=== PATIENT | male | born 1990 | race Caucasian/White ===

== ENCOUNTER 2018-05-21 06:54 | Emergency (ER) | payer OTHER, SELFPAY ==
[2018-05-21 07:01] VITALS: BP 134/88; PULSE 83; RESP 16; TEMP 36.8; O2SAT 99; BMI 34.3
--- NOTE | 2018-05-21 07:24 | ED.EAR ---
HPI - Ear Problem General Chief complaint: Ear Stated complaint: RIGHT EAR DRUM 'EXPLODING' Time Seen by Provider: 05/21/18 07:11 Source: patient and family Mode of arrival: ambulatory Limitations: no limitations History of Present Illness HPI Narrative: 27-year-old nonsmoking male presents with a chief complaint of severe right ear pain for the past few hours. He has had upper respiratory complaints for the past few days including runny nose and mild cough. He has had no fever or drainage. He denies any recent flights or scuba diving. He denies nausea, vomiting or diarrhea. He denies any extensive history of ear trouble MD Complaint: ear pain Location: right ear Duration: constant Severity: moderate Relieving factors: nothing Exacerbating factors: nothing Context: recent illness Discharge from ear: no Treatment prior to arrival: none Related Data Previous Rx's Medication Instructions Recorded amoxicillin 500 mg PO TID 7 Days #21 cap 05/21/18 Allergies Allergy/AdvReac Type Severity Reaction Status Date / Time No Known Drug Allergies Allergy Verified 05/21/18 07:04 Review of Systems Review of Systems All systems reviewed & are unremarkable except as noted in HPI and below Constitutional Denies chills, Denies fever(s), Denies lethargy and Denies weakness Eyes Denies change in vision, Denies eye discharge, Denies irritation and Denies loss of vision ENT Ears, Nose, Mouth, and Throat: Denies change in voice, Reports otalgia, Reports nasal congestion, Reports nasal discharge, Denies neck pain and Reports sore throat Cardiovascular Denies chest pain, Denies irregular heart rhythm, Denies lightheadedness, Denies palpitations, Denies dyspnea, Denies dyspnea on exertion and Denies orthopnea Respiratory Denies cough, Denies dyspnea, Denies dyspnea on exertion and Denies wheezing Gastrointestinal Gastrointestinal: Denies abdominal pain, Denies change in bowel habits, Denies diarrhea, Denies nausea and Denies vomiting Genitourinary Denies hematuria, Denies flank pain, Denies urinary incontinence and Denies urinary urgency Musculoskeletal Denies neck pain Integumentary/Breasts Denies pruritus, Denies erythema, Denies rash and Denies wounds Neurologic Denies confusion, Denies loss of vision and Denies weakness Psychiatric Denies anxiety, Denies confusion, Denies depression, Denies homicidal ideation and Denies suicidal ideation Endocrine Denies palpitations Hematologic/Lymphatic Denies easy bruising Allergic/Immunologic Denies wheezing Exam Narrative Exam Narrative: GEN: AOx3 and in mild distress EYES: Pupils are equal, round, and reactive to light and accommodation. Extraoccular muscles are intact bilaterally. There is no subconjunctival hemorrhage or exudate. ENT: left TM is normal, phillips with normal cone of light. Right tympanic membrane is opacified, retracted and quite erythematous. Clear postpharyngeal drainage, no erythema or tonsillar swelling nor exudate. CHEST: Lungs are clear to auscultation bilaterally and free of wheezes, rales, or rhonchi. Heart rate is regular rhythm, there are no murmurs, clicks, rubs, or gallops. There is no chest wall tenderness. ABD: Abdomen is soft and nontender. There is no guarding or rebound. Bowel sounds are normal in all 4 quadrants. There is no mass or organomegaly. EXT: Full painless ROM of all extremities with no loss of sensation or strength. SKIN: Warm, pink, and dry. No erythema or rash Initial Vital Signs Initial Vital Signs: Vital Signs Temperature 98.2 F 05/21/18 07:01 Pulse Rate 83 05/21/18 07:01 Respiratory Rate 16 05/21/18 07:01 Blood Pressure 134/88 05/21/18 07:01 Pulse Oximetry 99 05/21/18 07:01 Course Vital Signs - 8 hr 05/21/18 07:01 Temperature 98.2 F Pulse Rate 83 Respiratory Rate 16 Blood Pressure 134/88 Pulse Oximetry 99 Discharge Plan Departure Patient Disposition: Home Clinical Impression: Otitis media Discharge Date/Time: 05/21/18 07:54 Interventions: ED Discharge Assessment Last Done: 05/21/18 07:54 Instructions: Middle Ear Infection Activity Restrictions/Additional Instructions: *You have been diagnosed with [ Otitis media ] *What to do: *Take medications as directed, including [id number] cough and cold medications with an antihistamine and decongestant. *Follow up with your primary care provider in 2-3 days, call for an appointment. Let them know you were seen in the Emergency Department and that we ask that you be seen in follow up *Return to ER if you should have any new, worsening or concerning symptoms Prescriptions: New amoxicillin 500 mg capsule 500 mg PO TID 7 Days Qty: 21 RF: 0
== END 2018-05-21 07:54 | disposition home or self-care (01) ==
PROVIDERS: Emergency Provider Emergency Medicine
DX: H66.91 Otitis media, unspecified, right ear (principal)
CPT/HCPCS: 99282